=== PATIENT | female | born 1960 | race Caucasian/White ===

== ENCOUNTER 2018-02-18 11:21 | Emergency (ER) | payer OTHER ==
[~2018-02-18] VITALS: Ht 162.6 cm; Wt 74.8 kg
--- NOTE | 2018-02-18 12:30 | CT SCAN REPORT ---
EXAMINATION: CT ABDOMEN AND PELVIS WITHOUT CONTRAST CLINICAL INFORMATION: Nausea, vomiting, distention, pain. Presumptive diagnosis of small bowel obstruction. COMPARISON: None. TECHNIQUE: Multidetector volumetric imaging was performed from the superior aspect of the liver through the pubic symphysis. Sagittal and coronal reformatted images were obtained on the technologist workstation. DLP: 454.40 mGy-cm. FINDINGS: LUNG BASES: The visualized lung bases are unremarkable. LIVER, GALLBLADDER, AND BILIARY TREE: The liver is normal in size, shape, and attenuation. There are at least 5 variably sized low-attenuation masses seen in the right lobe of the liver, largest of which is in the subcapsular segment 8 (series 2, image 9), measuring 1.6 x 1.9 cm in size. The other masses are seen in segment 7 (series 2, image 12, 15) and in segment 6 (series 2, image 33 and 34). These masses are of soft tissue attenuation and is suspicious for multiple solid masses. The common bile duct is mildly dilated, measuring approximately 1.1 cm proximally and tapering to 0.8 cm in the pancreatic head. No calcified choledocholithiasis is seen and no definite pancreatic head mass is appreciated on noncontrast imaging. Findings are most likely related to a combination of the patient's age and postcholecystectomy state. Multiple mary lou are seen in the gallbladder fossa with no focal fluid collection noted.. PANCREAS: Unremarkable on noncontrast imaging. SPLEEN, ADRENAL GLANDS: Unremarkable on noncontrast imaging. KIDNEYS AND URETERS: The kidneys are normal in size, shape, and attenuation. There are bilateral nonobstructing renal calculi seen with pixel attenuation values ranging up to 533 Hounsfield units, suggesting calcified calculi. These include a 0.2 cm lower pole left renal calcification, a 0.4 cm upper pole right renal calcification and a 0.4 cm mid right renal calcification. No hydronephrosis or hydroureter seen. No perinephric stranding. BLADDER: Only partially distended but unremarkable. PELVIC VISCERA: The uterus is anteverted and retroflexed and otherwise unremarkable on noncontrast study. Ovaries bilaterally are not definitely visualized separate from the bowel loops, but no suspicious adnexal mass is seen. GASTROINTESTINAL TRACT: The small and large bowel loops are decompressed with no evidence of small bowel obstruction or perforation seen. The cecum is mobile and is seen extending to the right mid flank level. Fair amount of fecal material is seen in the cecum. The terminal ileum and appendix are normal. ABDOMINAL WALL: There is a tiny fat-containing umbilical hernia. LYMPH NODES, VASCULAR: Mild atherosclerotic calcifications of the aorta and branch vessels are noted. No periaortic collections seen. No abdominal or pelvic adenopathy or free fluid collection seen. OSSEOUS STRUCTURES: There is severe degenerative disc disease at the L5-S1 level with disc space narrowing, vertebral endplate sclerosis, spurring and vacuum disc phenomenon seen. Tiny posterior disc osteophyte complexes seen, indenting the thecal sac without causing significant spinal stenosis. Mild disc space narrowing and spurring seen at the L2-3 and L3-4 levels. Minimal vertebral spondylosis seen in the lower thoracic spine. IMPRESSION: 1. No evidence of bowel obstruction. Small and large bowel loops are decompressed and unremarkable. 2. Multiple solid masses are seen within the liver, incompletely characterized. There are no comparison studies available to assess stability of findings. Close clinical correlation is requested to assess for underlying malignancy and exclude metastatic disease. Further imaging assessment with MRI scan with and without contrast can be performed for further clarification of findings. 3. Bilateral 0.2 to 0.4 cm nonobstructing renal calculi. No evidence of hydronephrosis. 4. Mild extrahepatic ductal dilatation without obstructing stone or mass seen on noncontrast study. This finding can also be reassessed at the time of the above suggested MRI scan, which should ideally also include MRCP sequences. Findings may simply represent sequelae of previous cholecystectomy and patient's age. However, no obstructing mass must be excluded, especially in light of the liver findings.
[2018-02-18 12:46] LABS: ABSOLUTE BASOPHIL COUNT 0 /CUMM (0.0-0.2); ABSOLUTE EOSINOPHIL COUNT 0.1 /CUMM (0.0-0.7); ABSOLUTE GRANULOCYTE CT 5.3 /CUMM (1.4-6.5); ABSOLUTE MONOCYTE COUNT 0.3 /CUMM (0.10-0.60); BASOPHIL % 0.6 % (0.0-2.0); HEMATOCRIT 43.4 % (37-47); MEAN CORPUSCULAR HGB 29.7 PG (27.0-31.0); MEAN CORPUSCULAR HGB CONC 33.5 G/DL (33.0-37.0); MEAN CORPUSCULAR VOLUME 88.6 FL (81.0-99.0); MEAN PLATELET VOLUME 7.5 FL (7.4-10.4); PLATELET COUNT 246 /CUMM (130-400); RBC DISTRIBUTION WIDTH 13.2 % (11.5-14.5); WHITE BLOOD CELL COUNT 6.6 /CUMM (4.8-10.8)
--- NOTE | 2018-02-18 16:06 | ED GI/GU/ABDOMINAL COMPLAINT ---
History of Present Illness General Chief Complaint: Abdominal Pain/Flank Pain Stated Complaint: ABDOMINAL PAIN Source: patient Exam Limitations: no limitations Vital Signs & Intake/Output Vital Signs & Intake/Output Vital Signs Date Time Temp Pulse Resp B/P B/P Pulse O2 O2 Flow FiO2 Mean Ox Delivery Rate 02/18 1709 Room Air 02/18 1604 97.9 75 20 152/92 99 Room Air 02/18 1135 99.3 72 18 186/98 98 Room Air Allergies Coded Allergies: No Known Allergies (02/18/18) Reconcile Medications Ondansetron (Zofran Odt) 4 MG TAB.RAPDIS 1 TAB SL Q6 PRN NAUSEA/VOMITING Oxycodone HCl/Acetaminophen (Percocet 5-325 MG Tablet) 5 MG-325 MG TABLET 1 TAB PO Q8P PRN PAIN Triage Note: RUQ PAIN WITH RADIATION INTO BACK WITH ASSOCIATED N/V. +BLOATING, LAST BM TODAY AND DIARRHEA. DENIES BLACK OR BLOODY STOOLS. +FLATULENCE BUT SIGNIFICANTLY DECREASED. INCREASED BURPING. STATES SHE VOMITED A FEW. TEMP 99.2. HX CHOLY, C-SECTIONS, AND OOFERECTOMY SURGERIES. TIMES TODAY WHENEVER SHE DRANK WATER. Triage Nurses Notes Reviewed? yes ? N Is pt currently ? No Onset: Gradual Duration: hour(s): Timing: multiple episodes today Quality/Severity: moderate Severity Numbers: 7 Location: right upper quadrant Radiation: flank HPI: 57 y/o F PMHx HTN, s/p cholecystectomy 2001, s/p right oophorectomy 2010 complaining of abdominal pain, N/V/D x 1 day. Pt woke up this morning with a right sided, stabbing abdominal pain that radiated to the right flank. Pt had one episode of watery diarrhea, as well as multiple episodes of bilious emesis. Pt admits to occasional ETOH use, but denies daily use. Pt has not been able to keep food or water down all day. Pt denies fevers or chills, dysuria, oliguria, hematuria, hematochezia, recent weight loss, cp, SOB, change in diet, recent travel. (Chantale OSCAR,Fabiana Turner) Past History Travel History Traveled to [place] past 21 day No Medical History Any Pertinent Medical History? see below for history Neurological: NONE EENT: NONE Cardiovascular: hypertension Respiratory: NONE Gastrointestinal: NONE Hepatic: NONE Renal: NONE Musculoskeletal: NONE Psychiatric: NONE Endocrine: NONE Surgical History Surgical History: cholecystectomy, Oophorectomy -right Psychosocial History What is your primary language [place] Tobacco Use: Never used Family History Hx Contributory? No (Fabiana Lloyd) Review of Systems Review of Systems Constitutional: Reports: no symptoms. EENTM: Reports: no symptoms. Respiratory: Reports: no symptoms. Cardiovascular: Reports: no symptoms. GI: Reports: see HPI. Genitourinary: Reports: no symptoms. Musculoskeletal: Reports: no symptoms. Skin: Reports: no symptoms. Neurological/Psychological: Reports: no symptoms. Hematologic/Endocrine: Reports: no symptoms. Immunologic/Allergic: Reports: no symptoms. All Other Systems: Reviewed and Negative (Fabiana Lloyd) Physical Exam Physical Exam General Appearance: well developed/nourished, no apparent distress, alert, awake Head: atraumatic, normal appearance Eyes: Bilateral: normal appearance. Ears, Nose, Throat, Mouth: hearing grossly normal Neck: normal inspection, supple, full range of motion Respiratory: normal breath sounds, no respiratory distress, lungs clear Cardiovascular: regular rate/rhythm, NMRG Peripheral Pulses: 2+ radial (R), 2+ radial (L) Gastrointestinal: normal bowel sounds, soft, no organomegaly, Tender to plapation of RUQ, guarding noted, no rebound Back: normal inspection, normal range of motion Extremities: normal range of motion Neurologic/Psych: awake, alert, oriented x 3 Skin: intact, normal color, warm/dry Core Measures ACS in differential dx? No Sepsis Present: No Sepsis Focused Exam Completed? No (Fabiana Lloyd) Progress Differential Diagnosis: appendicitis, biliary colic, bowel obstruction, gastritis, hepatitis, hernia, kidney stone, ovarian cyst, peptic ulcer, PUD/GERD , SBO, malignancy Plan of Care: Orders Procedure Date/time Status EKG 02/18 1135 Active URINALYSIS 02/18 1133 Complete TROPONIN LEVEL 02/18 1133 Complete LIPASE 02/18 1133 Complete COMPREHENSIVE METABOLIC PANEL 02/18 1133 Complete CBC WITHOUT DIFFERENTIAL 02/18 1133 Complete Laboratory Tests 02/18/18 1229: Anion Gap 9, Estimated GFR > 60, BUN/Creatinine Ratio 23.3, Glucose 115 H, Calcium 9.9, Total Bilirubin 0.4, AST 23, ALT 32, Alkaline Phosphatase 86, Troponin I < 0.01, Total Protein 7.5, Albumin 4.3, Globulin 3.2, Albumin/ Globulin Ratio 1.3, Lipase 72, CBC w Diff NO MAN DIFF REQ, RBC 4.90, MCV 88.6, MCH 29.7, MCHC 33.5, RDW 13.2, MPV 7.5, Gran % 80.0 H, Lymphocytes % 14.5 L, Monocytes % 3.9, Eosinophils % 1.0, Basophils % 0.6, Absolute Granulocytes 5.3, Absolute Lymphocytes 1.0 L, Absolute Monocytes 0.3, Absolute Eosinophils 0.1, Absolute Basophils 0 02/18/18 1148: Urinalysis HEAVY H, Urine Color YEL, Urine Clarity HAZY H, Urine pH 7.5, Ur Specific Hye 1.020, Urine Protein NEG, Urine Ketones NEG, Urine Nitrite NEG, Urine Bilirubin NEG, Urine Urobilinogen 0.2, Ur Leukocyte Esterase NEG, Ur Microscopic SEDIMENT EXAMINED, Urine RBC RARE, Ur Epithelial Cells FEW, Urine Bacteria RARE H, Urine Mucus RARE, Urine Hemoglobin NEG, Urine Glucose NEG Discussed CT findings with GI doctor, Dr. Webb. She believes the patient's right upper quadrant pain is likely relating to growling masses in the liver putting pressure on the capsule. She does not believe that the dilated ducts aren't acute issue. She believes outpatient follow-up for further imaging studies is appropriate. Patient medicated with IV Zofran and pain control. She is now tolerating PO here in the emergency department. She feels comfortable going home with pain control and following up with GI doctor outpatient studies. She is informed of the possibility of malignancy and understands the necessity of follow-up. Strict return precautions given which she understands. The patient agrees with the plan of care. Diagnostic Imaging: Viewed by Me: CT Scan. Discussed w/RAD: CT Scan. Radiology Impression: PATIENT: GABY HARMON PRESENT AGE: 57 PATIENT ACCOUNT NO: [id number] : 61 LOCATION: [facility] ORDERING PHYSICIAN: Tirso OSCAR SERVICE DATE: 02/18/18 EXAM TYPE: CAT - CT ABD & PELVIS W/O IV CONTRAS EXAMINATION: CT ABDOMEN AND PELVIS WITHOUT CONTRAST CLINICAL INFORMATION: Nausea, vomiting, distention, pain. Presumptive diagnosis of small bowel obstruction. COMPARISON: None. TECHNIQUE: Multidetector volumetric imaging was performed from the superior aspect of the liver through the pubic symphysis. Sagittal and coronal reformatted images were obtained on the technologist workstation. DLP: 454.40 mGy-cm. FINDINGS: LUNG BASES: The visualized lung bases are unremarkable. LIVER, GALLBLADDER, AND BILIARY TREE: The liver is normal in size, shape, and attenuation. There are at least 5 variably sized low-attenuation masses seen in the right lobe of the liver, largest of which is in the subcapsular segment 8 (series 2, image 9), measuring 1.6 x 1.9 cm in size. The other masses are seen in segment 7 (series 2, image 12 , 15) and in segment 6 (series 2, image 33 and 34). These masses are of soft tissue attenuation and is suspicious for multiple solid masses. The common bile duct is mildly dilated, measuring approximately 1.1 cm proximally and tapering to 0.8 cm in the pancreatic head. No calcified choledocholithiasis is seen and no definite pancreatic head mass is appreciated on noncontrast imaging. Findings are most likely related to a combination of the patient's age and postcholecystectomy state. Multiple mary lou are seen in the gallbladder fossa with no focal fluid collection noted.. PANCREAS: Unremarkable on noncontrast imaging. SPLEEN, ADRENAL GLANDS: Unremarkable on noncontrast imaging. KIDNEYS AND URETERS: The kidneys are normal in size, shape, and attenuation. There are bilateral nonobstructing renal calculi seen with pixel attenuation values ranging up to 533 Hounsfield units, suggesting calcified calculi. These include a 0.2 cm lower pole left renal calcification, a 0.4 cm upper pole right renal calcification and a 0.4 cm mid right renal calcification. No hydronephrosis or hydroureter seen. No perinephric stranding. BLADDER: Only partially distended but unremarkable. PELVIC VISCERA: The uterus is anteverted and retroflexed and otherwise unremarkable on noncontrast study. Ovaries bilaterally are not definitely visualized separate from the bowel loops, but no suspicious adnexal mass is seen. GASTROINTESTINAL TRACT: The small and large bowel loops are decompressed with no evidence of small bowel obstruction or perforation seen. The cecum is mobile and is seen extending to the right mid flank level. Fair amount of fecal material is seen in the cecum. The terminal ileum and appendix are normal. ABDOMINAL WALL: There is a tiny fat-containing umbilical hernia. LYMPH NODES, VASCULAR: Mild atherosclerotic calcifications of the aorta and branch vessels are noted. No periaortic collections seen. No abdominal or pelvic adenopathy or free fluid collection seen. OSSEOUS STRUCTURES: There is severe degenerative disc disease at the L5-S1 level with disc space narrowing, vertebral endplate sclerosis, spurring and vacuum disc phenomenon seen. Tiny posterior disc osteophyte complexes seen, indenting the thecal sac without causing significant spinal stenosis. Mild disc space narrowing and spurring seen at the L2-3 and L3-4 levels. Minimal vertebral spondylosis seen in the lower thoracic spine. IMPRESSION: 1. No evidence of bowel obstruction. Small and large bowel loops are decompressed and unremarkable. 2. Multiple solid masses are seen within the liver, incompletely characterized. There are no comparison studies available to assess stability of findings. Close clinical correlation is requested to assess for underlying malignancy and exclude metastatic disease. Further imaging assessment with MRI scan with and without contrast can be performed for further clarification of findings. 3. Bilateral 0.2 to 0.4 cm nonobstructing renal calculi. No evidence of hydronephrosis. 4. Mild extrahepatic ductal dilatation without obstructing stone or mass seen on noncontrast study. This finding can also be reassessed at the time of the above suggested MRI scan, which should ideally also include MRCP sequences. Findings may simply represent sequelae of previous cholecystectomy and patient's age. However, no obstructing mass must be excluded, especially in light of the liver findings. DICTATED BY: Mer Fernandez MD DATE/TIME DICTATED:02/18/181206 PROGRAM MGR:OG DATE/TIME TRANSCRIBED:02/18/181206 CONFIDENTIAL, DO NOT COPY WITHOUT APPROPRIATE AUTHORIZATION. <Electronically signed in Other Vendor System> SIGNED BY: Mer Fernandez MD 02/18/18 1230 Initial ED EKG: sinus rhythm @64bpm, nonspecific ST changes (Chantale OSCAR,Fabiana Turner) Departure Departure Disposition: HOME OR SELF CARE Condition: Stable Clinical Impression Primary Impression: Abdominal pain Secondary Impressions: Liver mass Referrals: Ellis MARMOLEJO,Liberty Temple (PCP/Family) Additional Instructions: Take Percocet as prescribed as needed for pain. Take Zofran as prescribed as needed for nausea. Follow-up with the GI doctor as soon as possible for reevaluation of your abdominal pain. In The meantime if you have worsening symptoms including high fevers, increasing abdominal pain, persistent vomiting please return to emergency department. Please note that there might be incidental findings in your evaluation that are unrelated to the current emergency department visit. Please notify your primary care doctor about this emergency department visit in order to obtain and review all of the testing performed so that these incidental findings can be monitored as needed. If you had an x-ray performed, please understand that some fractures may not be seen on the initial set of x-rays. If your symptoms persist you might need a repeat set of x-rays to check for such a fracture. If you had a laceration evaluated, please understand that foreign bodies such as glass or wood may not be visible to the naked eye or on plain x-rays. If the wound becomes red, swollen, increasingly more painful or if there is any drainage from the wound, please have it reevaluated by a physician for the possibility of a retained foreign body. If you're unable to follow up as outlined in the discharge instructions please return to the emergency department. Thank you for choosing the [facility] for your care. It was a pleasure to serve you today. Departure Forms: Customer Survey General Discharge Information Prescriptions: Current Visit Scripts Ondansetron (Zofran Odt) 1 TAB SL Q6 PRN NAUSEA/VOMITING #10 TAB Oxycodone HCl/Acetaminophen (Percocet 5-325 MG Tablet) 1 TAB PO Q8P PRN PAIN #12 TAB (Chantale OSCAR,Fabiana Turner) PA/VICE PRESIDENT PROCESS Co-Sign Statement Statement: ED Attending supervision documentation- [] I saw and evaluated the patient. I have also reviewed all the pertinent lab results and diagnostic results. I agree with the findings and the plan of care as documented in the PA's/VICE PRESIDENT PROCESS's documentation. [x] I have reviewed the ED Record and agree with the PA's/VICE PRESIDENT PROCESS's documentation. [] Additions or exceptions (if any) to the PAs/VICE PRESIDENT PROCESS's note and plan are summarized below: [] (Shanthi MARMOLEJO,Da Stephens)
[2018-02-18] MEDS ORDERED: ZOFRAN ODT4 M1 SL ×2 (17:27→19:27)
[2018-02-18] MEDS ORDERED: PERCOCET 5-3251 EACH PO ×2 (17:27→19:29)
[2018-02-18 18:05] VITALS: BP 165/82
== END 2018-02-18 18:05 ==
LOC: ERH 11:21
PROVIDERS: Physician Assistant Medical
DX: R16.0 Hepatomegaly, not elsewhere classified (principal)
CPT/HCPCS: 74176; 81001; 93005; 93010; 96374; 96375; J1885; J2405